=== PATIENT | female | born 1985 | race Caucasian/White ===

== ENCOUNTER 2017-02-13 14:15 | Emergency (ER) | payer OTHER ==
--- NOTE | 2017-02-13 15:19 | ED ---
General Adult HPI - General Chief complaint: Psychiatric Symptoms Stated complaint: Mental Health Time Seen by Provider: 02/13/17 14:45 Source: patient, RN notes reviewed Mode of arrival: ambulatory - History of Present Illness Initial comments: This is a 31-year-old female comes to the emergency department stating she would rather be than to have to put up with the daily stresses that she now faces. Patient states she was in the detention up until yesterday and then was discharged yesterday and now has to find a place to live and she's having difficulty doing that and now the parole officers threatening her with going back to detention and she is stressed out and she keeps thinking that it would be better off if she was just that. Patient denies any plan. Patient denies any homicidal ideations. Patient denies any physical complaints today. Patient denies any headache patient denies numbness weakness. Patient denies any chest pain difficulty breathing palpitations shortness of breath. Patient denies abdominal pain patient denies nausea vomiting diarrhea. - Related Data Home Medications Medication Instructions Recorded Confirmed No Known Home Medications [No 02/13/17 02/13/17 Known Home Medications] Allergies Allergy/AdvReac Type Severity Reaction Status Date / Time oxycodone HCl Allergy Anaphylaxis Verified 02/13/17 15:13 [From OxyContin] propoxyphene napsylate AdvReac Anaphylaxis Verified 02/13/17 15:13 [From Darvocet-N] Review of Systems ROS Statement: Those systems with pertinent positive or pertinent negative responses have been documented in the HPI. ROS Other: All systems not noted in ROS Statement are negative. Past Medical History Past Medical History: Asthma, GERD/Reflux, Musculoskeletal Disorder Additional Past Medical History / Comment(s): Polysubstance abuse, chronic low back pain, carpal tunnel pain, seasonal allergies, anxiety History of Any Multi-Drug Resistant Organisms: None Reported Past Surgical History: Adenoidectomy, Tonsillectomy Additional Past Surgical History / Comment(s): DRUG FREE SINCE OCT 2016 Past Anesthesia/Blood Transfusion Reactions: No Reported Reaction Past Psychological History: Anxiety, Depression Smoking Status: Current every day smoker Past Alcohol Use History: None Reported, Occasional Past Drug Use History: None Reported Additional Drug Use History / Comment(s): cocaine 4 days ago, Heroine last night , Marijuana yesterday - Past Family History Mother Family Medical History: Hypertension (Mother is 59-year-old has history of hypertension and hypothyroidism as well as bipolar disorder), Thyroid Disorder Father Family Medical History: Unable to Obtain (Does not know anything about her father) Brother(s) Family Medical History: No Reported History (Patient has 2 brothers one of them was diagnosed with hepatitis C he is a heroin addict as well) Sister(s) Family Medical History: No Reported History (One sister no major medical problems) Son(s) Family Medical History: No Reported History (Patient had 2 sons one of the son' s father from Xanax overdose.) General Exam - General Exam Comments Initial Comments: GENERAL: Patient is well-developed and well-nourished. Patient is nontoxic and well- hydrated and is in no acute distress. ENT: Neck is soft and supple. No significant lymphadenopathy is noted. Oropharynx is clear. Moist mucous membranes. Neck has full range of motion without eliciting any pain. EYES: The sclera were anicteric and conjunctiva were pink and moist. Extraocular movements were intact and pupils were equal round and reactive to light. Eyelids were unremarkable. PULMONARY: Unlabored respirations. Good breath sounds bilaterally. No audible rales rhonchi or wheezing was noted. CARDIOVASCULAR: There is a regular rate and rhythm without any murmurs gallops or rubs. ABDOMEN: Soft and nontender with normal bowel sounds. No palpable organomegaly was noted. There is no palpable pulsatile mass. SKIN: Skin is clear with no lesions or rashes and otherwise unremarkable. NEUROLOGIC: Patient is alert and oriented x3. Cranial nerves II through XII are grossly intact. Motor and sensory are also intact. MUSCULOSKELETAL: Normal extremities with adequate strength and full range of motion. LYMPHATICS: No significant lymphadenopathy is noted PSYCHIATRIC: Normal psychiatric evaluation. Normal interpersonal interactions appears functionally intact in deals appropriately with others. No signs of depression. No signs of anxiety. No delusions. No hallucinations.t go to sleep and not wake up. Patient has no specific plan. Patient is not homicidal. Course Vital Signs 02/13/17 14:42 Temperature 98.2 F Pulse Rate 91 Respiratory 18 Rate Blood Pressure 115/63 O2 Sat by Pulse 96 Oximetry Medical Decision Making - Medical Decision Making [facility] evaluated the patient and made arrangements for the patient to have follow- up tomorrow. Patient states she would be safe until tomorrow for sure and [facility] was in agreement with that so we discharged patient home. - Lab Data Lab Results 02/13/17 02/13/17 Range/Units 14:50 14:50 Urine HCG, Qual Not Detected (Not Detectd) Urine Opiates Screen Not Detected (NotDetected) Ur Oxycodone Screen Not Detected (NotDetected) Urine Methadone Screen Not Detected (NotDetected) Ur Propoxyphene Screen Not Detected (NotDetected) Ur Barbiturates Screen Not Detected (NotDetected) U Tricyclic Antidepress Not Detected (NotDetected) Ur Phencyclidine Scrn Not Detected (NotDetected) Ur Amphetamines Screen Not Detected (NotDetected) U Methamphetamines Scrn Not Detected (NotDetected) U Benzodiazepines Scrn Not Detected (NotDetected) Urine Cocaine Screen Detected H (NotDetected) U Marijuana (THC) Screen Not Detected (NotDetected) Disposition Clinical Impression: Situational depression Disposition: HOME SELF-CARE Condition: Good Instructions: Depression (ED) Referrals: None,Stated [Primary Care Provider] - 1-2 days Time of Disposition: 16:28
[2017-02-13 16:38] VITALS: BP 106/58; PULSE 15; RESP 75; TEMP 98
== END 2017-02-13 16:38 | disposition home or self-care (01) ==
LOC: EC 14:15
DX: F43.21 Adjustment disorder with depressed mood (principal); F17.200 Nicotine dependence, unspecified, uncomplicated; Z88.5 Allergy status to narcotic agent; Z88.8 Allergy status to other drugs, medicaments and biological substances
CPT/HCPCS: 80306; 81025; 82075; 99285